=== PATIENT | male | born 1945 | race Caucasian/White ===

== ENCOUNTER → 2019-05-10 | Outpatient (CLI) | payer MEDICARE ==
[2016-05-31 18:52] VITALS: BP 180/76
[~2019-05-10] MED LIST: ASPI-630 PO; ATOR10TA PO; ATOR20TA PO; CALC1TAB64 PO; CALC667C6 PO; CEPH-264 PO; CHOL100013 PO; FOLI1TAB16 PO; LOSA25TA PO; MULT-208 PO; MULT-245 PO; OLAN5TAB3 PO; OMEP20TA63 PO; RIVA6CAP2 PO
--- NOTE | 2019-05-10 13:11 | CARD ---
MR#: [id number] Date of Study: 05/10/2019 Ordering Physician: NISHA LE, Referring Physician: NISHA LE, Tech: Nhi Gentile SANDRO APPROVED REPORT EXAM: Two-dimensional and M-mode echocardiogram with Doppler and color Doppler. Other Information Quality : Good INDICATION Murmur 2D DIMENSIONS RVDd2.3 (2.9-3.5cm)Left Atrium(2D)3.1 (1.6-4.0cm) IVSd1.1 (0.7-1.1cm)Aortic Root(2D)2.9 (2.0-3.7cm) LVDd4.4 (3.9-5.9cm)LVOT Diameter2.2 (1.8-2.4cm) PWd1.0 (0.7-1.1cm)LVDs2.9 (2.5-4.0cm) FS (%) 30.0 %SV55.0 ml LVEF(%)60.0 (>50%) Aortic Valve AoV Peak Jean.138.4cm/sAoV VTI25.0cm AO Peak GR.7.7mmHgLVOT Peak Jean.102.7cm/s AO Mean GR.4mmHgAVA (VMAX)2.83cm2 SARAHI (VTI)3.40cm2 Mitral Valve MV E Cwvdbult85.5cm/sMV DECEL KNYE248va MV A Jujlewwq019.6cm/sE/A Ratio0.7 Tricuspid Valve TR P. Svvbzhfv510yx/sRAP NBMNOPCI4omUp TR Peak Gr.84xlKmLTFT28emYe Pulmonary Vein S1 Hsunnoif15.8cm/sD2 Bpikigpt55.8cm/s LEFT VENTRICLE The left ventricle is normal size. There is normal left ventricular wall thickness. The left ventricu lar systolic function is normal. The Ejection Fraction is 55-60%. There is normal LV segmental wall m otion. Transmitral Doppler flow pattern is Grade I-abnormal relaxation pattern. RIGHT VENTRICLE The right ventricle is normal size. The right ventricular systolic function is normal. ATRIA The left atrium size is normal. The right atrium size is normal. The interatrial septum is intact wit h no evidence for an atrial septal defect or patent foramen ovale as noted on 2-D or Doppler imaging. AORTIC VALVE The aortic valve is calcified but opens well. Doppler and Color Flow revealed no significant aortic r egurgitation. There is no significant aortic valvular stenosis. MITRAL VALVE The mitral valve is calcified but opens well. Mitral annular calcification is mild. A borderline mitr al valve prolapse is present. There is no mitral valve stenosis. Doppler and Color-flow revealed trac e mitral regurgitation. TRICUSPID VALVE The tricuspid valve is normal in structure and function. Doppler and Color Flow revealed trace tricus pid regurgitation. The PA pressure was estimated at 28 mmHg. There is no tricuspid valve stenosis. PULMONIC VALVE The pulmonic valve is not well visualized. Doppler and Color Flow revealed mild pulmonic valvular reg urgitation. There is no pulmonic valvular stenosis. GREAT VESSELS The aortic root is normal in size. The ascending aorta is normal in size. The IVC is normal in size a nd collapses >50% with inspiration. PERICARDIAL EFFUSION There is no evidence of significant pericardial effusion. Critical Notification Critical Value: No <Conclusion> The left ventricular systolic function is normal. The Ejection Fraction is 55-60%. There is normal LV segmental wall motion. Transmitral Doppler flow pattern is Grade I-abnormal relaxation pattern. Trace mitral regurgitation. Trace tricuspid regurgitation. The PA pressure was estimated at 28 mmHg. There is no evidence of significant pericardial effusion. Signed by : Ernie Lawrence, Electronically Approved : 05/10/2019 13:11:40
== END | disposition home or self-care (01) ==
LOC: ECHO 12:02
PROVIDERS: ATTEND Internal Medicine Cardiovascular Disease
DX: I08.8 Other rheumatic multiple valve diseases (principal)
CPT/HCPCS: 93306